=== PATIENT | female | born 1950 ===

== ENCOUNTER 2017-01-30 09:25 | Inpatient (IN) | payer MEDICARE, OTHER ==
[~2017-01-30] VITALS: Ht 152.4 cm; Wt 100.3 kg
--- NOTE | ~2017-01-30 | DS ---
Discharge Summary [id number] [place]. [address] NAME: PANCHITO BRADLEY : 46 STATUS : DIS IN PAT#: [id number] AGE: 66 ADM/REG DATE : 01/31/17 MR#: [id number] REPORT SERV DATE: 02/03/17 DICTATED BY: JR. HOWARD WILLIAM JOHN DATE: 02/02/17 REPORT STATUS : Draft TRANSCRIBED BY: CHRISTOPHER DATE: 02/02/17 ADMISSION DATE: 01/31/2017 DISCHARGE DATE: 02/02/2017 ADDENDUM: PROBLEM LIST: Shortness of breath with hypoxia. The patient failed home O2 eval and refuses to get O2 tank and concentrator at home. The patient wants to only carry pocketbook-type O2 when out of the house. I have encouraged the patient to get the O2 tanks and concentrator at least during home activity, and the patient is prescribed DuoNeb aerosol nebulizers four times a day as well as albuterol HFA q.4 hours p.r.n. shortness of breath and to follow up with her PCP later this week. ESTEBAN/CHRISTOPHER Noemi Burgess NP Chirag Howard Jr, MD / [id number] CC: Chirag Howard Jr, MD Melissa Phillips, M.D.
--- NOTE | ~2017-01-30 | PUL ---
[id number] [place]. [address] NAME: PANCHITO BRADLEY : 46 STATUS : DIS IN PAT#: [id number] AGE: 66 ADM/REG DATE : 01/31/17 MR#: [id number] REPORT SERV DATE: 02/03/17 DICTATED BY: PRIYANKA SPRINGER DATE: 02/02/17 REPORT STATUS : Draft TRANSCRIBED BY: MODL DATE: 02/02/17 PULMONARY FUNCTION TEST Overnight oximetry report performed on room air. Total valid sampling time was five hours, 55 minutes, and 23 seconds. Saturations were less than 88% for four minutes and two seconds. INTERPRETATION: Normal oximetry report while on room air. ANEL/CHRISTOPHER Priyanka Springer M.D. / [id number] CC: Chirag Howard Jr, MD Melissa Phillips, M.D.
--- NOTE | ~2017-01-30 | DS ---
Discharge Summary [facility] [address] [place]. [address] NAME: PANCHITO BRADLEY : 46 STATUS : DIS IN PAT#: [id number] AGE: 66 ADM/REG DATE : 01/31/17 MR#: [id number] REPORT SERV DATE: 02/03/17 DICTATED BY: JR. HOWARD WILLIAM JOHN DATE: 02/02/17 REPORT STATUS : Draft TRANSCRIBED BY: CHRISTOPHER DATE: 02/02/17 ADMISSION DATE: 01/31/2017 DISCHARGE DATE: 02/02/2017 DISCHARGE DIAGNOSES: 1. Acute on chronic low back pain. 2. Shortness of breath with hypoxia. 3. Hypertension. 4. Diabetes mellitus, type 2 with hyperglycemia and A1c of 8.4. 5. Escherichia coli urinary tract infection. 6. Headache. 7. Hypokalemia. CONSULTATIONS: Cardiology, Dr. Ramesh and Dr. Trimble. PROCEDURES AND IMAGIN. 01/30/2017, chest PA and lateral showed:. a. Cardiomegaly. b. Pulmonary vascular congestion. c. Bibasilar and left perihilar atelectasis. d. Bilateral pleural fluid. 2. 02/01/2017, portable chest x-ray showed cardiomegaly with chest improving compared to previous study. HOSPITAL COURSE: Please see initial H and P dictated by Dr. Luis Daniel Cardona on 01/30/2017 for complete details regarding the patient's admission. In brief, the patient was admitted by Dr. Cardona for low back pain, shortness of breath due to possible congestive heart failure. The patient's low back pain has been doing very well with cyclobenzaprine twice daily, and the patient will be discharged home with this medication. Upon arrival in the ER, the patient's arterial blood gas was pH 7.40, pCO2 34, pO2 of 45, base excess negative 3.7, bicarb 20.2, and O2 saturation of 79.5 on room air. The patient has been aggressively diuresed since her admission and has been able to be weaned off her 2 L of oxygen per nasal cannula. Sats monitoring on her first night required her to be on 2 L nasal cannula and O2 monitoring last night, the patient was stable without oxygen. The patient will be having a home O2 eval with and without activity prior to discharge. The patient does have a history of hypertension for which Cardiology had increased her amlodipine to 10 mg daily. After admission, the patient's amlodipine was then decreased again to 5 mg daily. The patient's blood pressure has been between 129 to 170 over 50 to 70 since this change of medication. When the patient was admitted, she had bilateral lower extremity 2 to 3+ to her knees, which has now resolved to right lower extremity 1 to 2+ above her right ankle and her left lower extremities within normal limits. The patient has diabetes mellitus, type 2 with elevated blood glucose and A1c of 8.4. The patient's with meal insulin has been increased to 30 units and her Novolin N has been Discharge Summary [address] [address] NAME: PANCHITO BRADLEY : 46 STATUS : DIS IN PAT#: [id number] AGE: 66 ADM/REG DATE : 01/31/17 MR#: [id number] REPORT SERV DATE: 02/03/17 DICTATED BY: JR. HOWARD WILLIAM JOHN DATE: 02/02/17 REPORT STATUS : Draft TRANSCRIBED BY: CHRISTOPHER DATE: 02/02/17 increased to 40 units before breakfast and supper. The patient has been instructed to keep track of her before meal and bedtime blood sugars and to take a diary to her primary care provider for further adjustment. The patient also stated that she had been checking her blood sugars and then not eating for 4 to 5 hours after checking her blood sugars, so the patient has been instructed to pack her breakfast and take it with her to eat on the bus so that she can take her insulin on a regularly scheduled basis with her food. The patient is agreeable to this plan. The patient has also been doing some adjusting of her insulin at home and this was discouraged, and the patient is agreeable to plan. During the patient's stay, it was discovered on her urinalysis that she had a urinary tract infection with E. coli, and the patient has been placed on Duricef 1 g twice daily for 10 days. During the patient's stay, she has been experiencing headache, which has decreased today and had been alleviated by taking Aleve during her stay. The patient also had experience of hypokalemia secondary to her diuretics and her potassium has been doubled for her home dosing. We have scheduled an outpatient sleep study and pulmonary function tests to be done within the next week. PHYSICAL EXAMINATION: VITAL SIGNS: Blood pressure is 171/70, O2 saturation is 96% on 1 L nasal cannula, temperature is 98.1, heart rate is 62, respirations are 16. HEENT: Head is atraumatic, normocephalic. Pupils are equal, round, reactive to light and accommodation. Sclerae are clear. Nonicteric. No xanthelasma. NECK: Supple with no obvious thyromegaly or lymphadenopathy. Neck veins are flat and trachea is midline. CARDIAC: S1 and S2 with no obvious murmurs, rubs, or gallops. LUNGS: Lungs are clear to auscultation with normal respiratory effort. GI: Abdomen is soft and nontender with active bowel sounds in all four quadrants. EXTREMITIES: The patient has right lower extremity above the ankle and right foot, 1 to 2+ pitting edema. Left lower extremity is within normal limits. Dorsalis pedis and posterior tibial pulses are present bilaterally, no cyanosis. MUSCULOSKELETAL: Moves all extremities x4. She is ambulatory without assistance. No difficulties with balance. SKIN: Skin is warm and dry with normal color and turgor. NEURO/PSYCH: The patient is alert and oriented x4, pleasant and cooperative. Cranial nerves 2 through 12 are grossly intact. DISCHARGE DIET: The patient is to go home on 1800-calorie diet with 2 L fluid restriction. DISCHARGE MEDICATIONS: Amlodipine 5 mg daily; aspirin 81 mg daily; Duricef 1000 mg twice daily, stop date 02/10/2017, at bedtime; vitamin B12 of 1000 mcg daily; Flexeril 10 mg twice daily; Lasix 40 mg twice daily; gabapentin 100 mg daily; Novolin N 40 units before breakfast and supper; Novolin R 30 units before meals; lisinopril 40 mg daily; Theragran M one tab daily; Lopressor 12.5 mg daily; omeprazole 20 mg daily; potassium chloride 20 mEq twice daily; Zoloft 100 mg daily; Zocor 40 mg daily; Fortamet 1000 mg twice daily; flaxseed 1000 mg daily; krill oil one capsule daily; biotin 5 mg daily; Imodium 2 mg p.r.n. diarrhea. ALLERGIES: THE PATIENT IS ALLERGIC TO SULFA FOR WHICH SHE GETS WELTS AND CODEINE FOR WHICH Discharge Summary [address] [place]. [address] NAME: PANCHITO BRADLEY : 46 STATUS : DIS IN PAT#: [id number] AGE: 66 ADM/REG DATE : 01/31/17 MR#: [id number] REPORT SERV DATE: 02/03/17 DICTATED BY: JR. HOWARD WILLIAM JOHN DATE: 02/02/17 REPORT STATUS : Draft TRANSCRIBED BY: MODHerbert DATE: 02/02/17 SHE GETS NAUSEA. DISCHARGE INSTRUCTIONS: The patient is to follow up with her PCP, Dr. Quiroz, in 7 to 10 days with a blood sugar log. The patient is to have outpatient sleep study and pulmonary function test and she will be notified of scheduling. The patient is to have a 2 L fluid restriction and 1800 calorie diet. If the patient has any more episodes of shortness of breath or chest pain issues, she is to follow up with her PCP or present to the ER. Approximately 40 minutes has been spent coordinating discharge care of this patient including [id number] encounter and summarization of the discharge. [facility] [place]MOD[place]bert Noemi Burgess NP Chirag Howard Jr, MD / [phone] CC: Chirag Howard Jr, MD Melissa Phillips, M.D.
--- NOTE | ~2017-01-30 | HP ---
History And Physical [id number] [facility]. [address] NAME: PANCHITO BRADLEY : 46 STATUS : ADM Buck PAT#: [id number] AGE: 66 ADM/REG DATE : 01/30/17 MR#: [id number] REPORT SERV DATE: 01/30/17 DICTATED BY: LYNN VOGT DATE: 01/30/17 REPORT STATUS : Draft TRANSCRIBED BY: MODHerbert DATE: 01/30/17 DATE OF ADMISSION: 01/30/2017 REASON FOR ADMISSION: Low back pain, some shortness of breath due to diastolic congestive heart failure. HISTORY OF PRESENT ILLNESS: This is a 66-year-old white female, who lives in [facility]. She was hospitalized here in 2014 for congestive heart failure with low BNP of 168. She responded to diuretics back then, and her diuretics have been reduced at some point at home down from 40 mg twice a day on the Lasix to 20 mg twice a day. She was seen by nurse practitioner, Patti in the emergency room and given IV Lasix, that has not actually been given yet; however, she called the hospitalist for admission to the hospital. The patient's primary complaint of coming to the emergency room is low back pain. She saw Dr. Quiroz on Friday for low back pain, had a CT scan of her lumbar spine at [facility] in [place]. Old records are not available at this time but have been requested. The back pain is at the L4-5 level. She has had degenerative joint disease there. She has been offered surgery in the past. She does not know how she aggravated this. No step-down, no fall, no trauma. She does have morbid obesity and is aware of her body habitus and needs to lose weight. However, she does inject insulin to try to control her blood sugars and has been seen by certified residential medication aide in the past, now followed by Dr. Quiroz. She is followed by Dr. Parth Ramesh. No old echocardiogram is available on the computer chart. I am certain that Dr. Ramesh having seen her every six months that she has had an echocardiogram at some point. We will get him to consult and advise. This morning, she came with some shortness of breath, nausea, and vomiting, was hypoxemic in the emergency room with PaO2 of 44 and complaining of low back pain. She is given IV morphine for low back pain. No further imaging has been done yet. PAST MEDICAL HISTORY: She had remotely had surgeries which included cholecystectomy, hysterectomy, appendectomy, and another procedure. HOME MEDICATIONS: Include the following: Amlodipine 10 mg p.o. daily, Halfprin 81 mg p.o. daily, biotin capsule 1 p.o. daily, vitamin B12 of 1000 mcg p.o. daily, flaxseed oil 1000 mg p.o. daily, furosemide 20 p.o. b.i.d., gabapentin 100 mg p.o. at bedtime, insulin NPH 30 units subcu b.i.d., Zoloft 100 mg p.o. daily, Zocor 40 mg at bedtime, regular insulin 25 units at bedtime, krill oil 1 p.o. daily, lisinopril 40 mg p.o. daily, loperamide 2 mg p.o. p.r.n. diarrhea, metformin ER 1000 mg p.o. twice a day, metoprolol 12.5 mg p.o. b.i.d., multivitamin one a day, omeprazole 20 mg p.o. daily, and Klor-Con 20 mEq p.o. daily. ALLERGIES: INCLUDE CODEINE AND SULFA. THE SULFA CAUSES WELTS, CODEINE CAUSES NAUSEA. History And Physical [address] [address] NAME: PANCHITO BRADLEY : 46 STATUS : ADM Buck PAT#: [id number] AGE: 66 ADM/REG DATE : 01/30/17 MR#: [id number] REPORT SERV DATE: 01/30/17 DICTATED BY: LYNN VOGT DATE: 01/30/17 REPORT STATUS : Draft TRANSCRIBED BY: MODL DATE: 01/30/17 SOCIAL HISTORY: She lived in [place] for most of her life. Her is a smoker. She got secondhand smoke there. She does not smoke cigarettes herself. She has been for three years. Moved to [place], [place], where sisters are at that time. She does not smoke cigarettes or take any alcohol. She attends [employer]. She does not drive. Her sister's pick her up and take her to [place]. FAMILY HISTORY: She had brothers who had coronary artery disease. Sister with diabetes, no heart disease. Mother and father both of diabetes. REVIEW OF SYSTEMS: Her blood sugar is not very well controlled at home. She does get a 130 in the afternoon, however. She recognizes her obesity. She does have sleep apnea. She uses a mouth block for this. She has had no fever, chills, night sweats, unilateral weakness, melena, or hematemesis. She does have swelling of lower extremities all the time, perhaps worse here recently. She has had no fits, seizures, or convulsions. Her main complaint is back pain, it does not radiate, it is in the mid part of her back. There is no heat or fluctuance in that area. The remainder of the review of systems is negative. PHYSICAL EXAMINATION: GENERAL: White female, in no acute distress. She is morbidly obese white female with drowsiness but is awakened with tactile stimulation and complains of her back pain. VITAL SIGNS: Her blood pressure is 130/70 with a heart rate of 88, respiratory rate 16, afebrile. HEENT: EOMI. Sclerae clear. Conjunctivae pink. She is somewhat drowsy. NECK: No bruit without any JVD. CHEST: She has rales left greater than the right in the posterior aspect. HEART: Regular S1, S2 without murmur, gallop, or click. ABDOMEN: Grossly obese. Nontender. Bowel sounds are positive. She is protuberant. EXTREMITIES: Have 3 to 4+ pitting edema. Hard. No distal pulses can be palpated. NEUROLOGIC: DTRs are brisk and equal symmetrically bilaterally of the knees. Her lining cutter is equal and symmetric bilaterally. Coordination intact. She has no tremor. She has normal pllqqc-pa-nqmy examination. She is aroused. LYMPHATICS: There is no adenopathy. BREASTS: Grossly without mass. SKIN: Without rash, ecchymosis, or bruising. BACK: She has spasm in the erector spinae muscles to the midportion of back from lumbar area. LABORATORY DATA: BNP was 281.5. Her BMP showed a sodium 136, potassium 4.2, creatinine 1.84, BUN 12, glucose 260, calcium 9.3, magnesium 1.8. Troponin 0.03. The lactate showed 1.8. The hemoglobin was 14.2, hematocrit 43.7, white count 10.6, and platelets were 182,000. INR 1.1. Arterial blood gases showed a pH of 7.40, PaCO2 of 34, and PaO2 of 45 on room air. History And Physical [address] [address] NAME: PANCHITO BRADLEY : 46 STATUS : ADM Buck PAT#: [id number] AGE: 66 ADM/REG DATE : 01/30/17 MR#: [id number] REPORT SERV DATE: 01/30/17 DICTATED BY: LYNN VOGT DATE: 01/30/17 REPORT STATUS : Draft TRANSCRIBED BY: MODL DATE: 01/30/17 The chest x-ray PA and lateral showed cardiomegaly with pulmonary venous congestion, bilateral perihilar atelectasis, and bilateral pleural effusion. ASSESSMENT: 1. Low back pain, acute exacerbation of chronic problem. She had a CT scan of her back at [facility] earlier this week. We will try to get copies of this from Dr. Quiroz office or [facility]. 2. Shortness of breath. 3. Hypertension. 4. Probable diastolic congestive heart failure. 5. Diabetes type 2, uncontrolled. 6. Morbid obesity. 7. Obstructive sleep apnea. 8. Muscle spasm of the erector spinae muscles. We will go ahead and add Flexeril for this. PLAN: IV Lasix has been ordered in the emergency room. I will add Zaroxolyn to that. I will increase her Lasix to 40 mg p.o. b.i.d. I am consulting physical therapy for back pain assessment with intent on improving her and not subjecting to surgery as has been mentioned to her in the past. I believe correction for shortness of breath and hypoxemia would be adequate to be able to be discharged home. She can receive outpatient physical therapy for the back pain or follow up with Dr. Quiroz. Pending at the time of transfer to floor are urinalysis and the x-ray images of the abdomen or back from [facility]. DB/MODL Lynn Vogt M.D. / [id number] CC: Chirag Howard Jr, MD Melissa Phillips, M.D. Steven Stubblefield, M.D., F.A.C.C.
--- NOTE | ~2017-01-30 | CN ---
Consultation Report [facility] [address] [place]. [address] NAME: PANCHITO BRADLEY : 46 STATUS : ADM IN [facility]#: [id number] AGE: 66 ADM/REG DATE : 01/31/17 MR#: [id number] REPORT SERV DATE: 01/31/17 DICTATED BY: PARTH RAMESH DATE: 01/31/17 REPORT STATUS : Draft TRANSCRIBED BY: MODHerbert DATE: 01/31/17 CARDIOLOGY CONSULTATION DATE OF CONSULTATION: HISTORY: The patient is a 66-year-old white female with a history of aortic valve disease, hypertension, diabetes, and hyperlipidemia. She presents with a history of increased dyspnea, associated with coughing and wheezing over the past week. The patient also complains of worsening ankle edema. BNP on admission was 281. Echocardiogram done today shows "moderate" aortic regurgitation with preservation of left ventricular cavity size and contractility (left ventricular ejection fraction was 55% to 60%). The patient has been on Lopressor 12.5 mg b.i.d., lisinopril 40 mg a day, potassium chloride 20 mEq a day, Lasix 20 mg b.i.d., Norvasc 10 mg a day, and Zocor 40 mg a day at home. PAST MEDICAL HISTORY: Remarkable for aortic valve disease, hypertension, type 2 diabetes, hyperlipidemia, and morbid obesity. SOCIAL HISTORY: The patient does not smoke. FAMILY HISTORY: Positive for coronary disease. REVIEW OF SYSTEMS: The patient has nonproductive cough. She has not been having nausea, vomiting, diarrhea, or dysuria. PHYSICAL EXAMINATION: VITAL SIGNS: Blood pressure 150/70, heart rate is 90 and regular, respirations 16 and nonlabored. ENT: Unremarkable. NECK: Shows no jugular venous distention with good carotid upstroke. CHEST: Clear. CARDIOVASCULAR: PMI is lateral to the mid clavicular line. S1 is normal. S2 is narrowly split, 2/6 systolic murmur and a 1/6 diastolic murmur present at the right upper sternal border. ABDOMEN: Obese, but otherwise unremarkable. EXTREMITIES: Remarkable for 1+ ankle edema. SKIN: Warm and dry with no pallor or icterus. NEURO/PSYCH: The patient is oriented x3 with appropriate affect. The creatinine is 0.84, BUN is 12. The 12-lead EKG is currently on the chart. IMPRESSION: 1. Mild to moderate aortic regurgitation with preservation of left ventricular size and Consultation Report [address] [place]. [address] NAME: PANCHITO BRADLEY : 46 STATUS : ADM IN PAT#: [id number] AGE: 66 ADM/REG DATE : 01/31/17 MR#: [id number] REPORT SERV DATE: 01/31/17 DICTATED BY: PARTH RAMESH DATE: 01/31/17 REPORT STATUS : Draft TRANSCRIBED BY: CHRISTOPHER DATE: 01/31/17 systolic function. 2. Minimal elevation of BNP makes clinical congestive heart failure, unlikely. 3. Essential hypertension. 4. Type 2 diabetes. 5. Morbid obesity. 6. Multiple risk factors for coronary disease with increasing dyspnea, probably should be evaluated with a nuclear scan. RECOMMENDATION: 1. Decrease Norvasc to 5 mg a day, because of complaints of edema. 2. Continue lisinopril and Lasix in current doses. 3. Check nuclear perfusion scan. 4. I advised the patient to lose weight and better control diabetes. Thank you very much for this consultation. OSMEL/CHRISTOPHER Parth Ramesh M.D., F.A.C.C. / [id number] CC: Chirag Howard Jr, MD Melissa Phillips, M.D.
[~2017-01-30 09:25] MED LIST: ALEVE220 MG PO; ASAB PO; CELEBREX2 PO; CLEOCIN300 MG PO; FORTAMET500 MG PO; INSNOVN SC; INSNOVR; INSNOVR SC; KRILLOIL PO; L20 PO; L40 PO; LISINOPRIL40 MG PO; LOP25 PO; METROCREAM0.75 % TOP; MULTIVIT/MIN PO; NORV10 PO; PROVENTSOL INH; RESTASIS OPH; VITAMIN D31000 UNIT PO; ZANTAC 150 PO; ZOCOR40 PO; ZOL50 PO; [UNRECOGNIZED DRUG - REMARK]; [UNRECOGNIZED DRUG - REMARK]
[2017-01-30 10:29] LABS: BE (BASE EXCESS) -3.7 MEQ/L (0 +/- 2.5); CARBOXYHEMOGLOBIN 1.9 % (0-3); HCO3 (ACTUAL BICARBONATE) 20.2 MEQ/L (23-27); HEMOBLOGIN CONTENT 15.2 G/DL (12-16); INSTRUMENT SERIAL # 8087; METHEMOGLOBIN 0.5 % (0-3); O2 CONTENT 16.5 VOL% (18-24); PCO2 (CO2 TENSION) 34 MMHG (35-45); PO2 (O2 TENSION) 45 MMHG (79-93); SAMPLE Arterial
[2017-01-30 10:30] LABS: ALLENS TEST Pos
[2017-01-30] MEDS ORDERED: L20 PO (10:48)
[2017-01-30] MEDS ORDERED: NORV10 PO (10:48)
[2017-01-30] MEDS ORDERED: ZESTRIL40 MG PO (10:48)
[2017-01-30] MEDS ORDERED: LOP25 PO (10:49)
[2017-01-30] MEDS ORDERED: ZOCOR40 PO (10:49)
[2017-01-30] MEDS ORDERED: KLOR-CON M2020 MEQ PO (10:49)
[2017-01-30] MEDS ORDERED: NEUR100 PO (10:49)
[2017-01-30] MEDS ORDERED: ZOL100 PO (10:49)
[2017-01-30] MEDS ORDERED: THERGRANM PO (10:50)
[2017-01-30] MEDS ORDERED: HALF81 PO (10:50)
[2017-01-30] MEDS ORDERED: FORTAMET1000 MG PO (10:50)
[2017-01-30] MEDS ORDERED: BL FLAX SEED1000 MG PO (10:51)
[2017-01-30] MEDS ORDERED: KRILLOIL PO (10:51)
[2017-01-30] MEDS ORDERED: BIOTIN5 MG PO (10:52)
[2017-01-30] MEDS ORDERED: CYANO1000T PO (10:52)
[2017-01-30] MEDS ORDERED: INSNOVR SC (10:52)
[2017-01-30] MEDS ORDERED: INSNOVN SC (10:54)
[2017-01-30] MEDS ORDERED: PRILO PO (10:54)
[2017-01-30] MEDS ORDERED: IMOD PO (10:55)
[2017-01-30 11:11] LABS: BASOPHILS 0.1 %; BASOPHILS ABSOLUTE 0.01 10/3/uL (0.0-0.16); EOSINOPHILS 0.1 %; EOSINOPHILS ABSOLUTE 0.01 10/3/uL (0.0-0.53); HEMATOCRIT 43.7 % (36.0-48.0); HEMOGLOBIN 14.2 g/dL (12.0-16.0); IMMATURE GRANULOCYTES 0.7 %; IMMATURE GRANULOCYTES ABSOLUTE 0.07 10/3/uL (0.0-0.11); LYMPHOCYTES 7.6 %; LYMPHOCYTES ABSOLUTE 0.81 10/3/uL (0.67-4.30); MANUAL DIFF NO %; MEAN CORPUS HGB CONC 32.5 g/dL (32.0-36.0); MEAN PLATELET VOLUME 11.7 fL (9.2-13.0); MONOCYTES 2.3 %; MONOCYTES ABSOLUTE 0.24 10/3/uL (0.21-1.20); NEUTROPHILS 89.2 %; NEUTROPHILS ABSOLUTE 9.45 10/3/uL (2.02-8.40); PLATELET COUNT 182 10/3/uL (150-400); RBC DISTRIBUTION WIDTH 15.1 % (12.0-16.0); RED CELL COUNT 5.08 10/6/uL (4.0-5.6); WHITE BLOOD CELLS 10.6 10/3/uL (4.5-10.5)
[2017-01-30 11:18] LABS: INTERNATIONAL NORMAL RATI 1.1 UNITS (-)
[2017-01-30 11:19] LABS: PARTIAL THROMBO TIME 26.9 SEC (22.5-37.2)
[2017-01-30 11:27] LABS: LACTATE 1.8 MMOL/L (0.3-2.4)
[2017-01-30 11:28] LABS: BUN (BLOOD UREA NITROGEN) 12 MG/DL (6-23); CALCIUM, SERUM 9.3 MG/DL (8.5-10.4); CHEST PAIN PROFILE TAT 0 Hrs 21 Mins; CHLORIDE, SERUM 103 MMOL/L (96-112); CO2 (CARBON DIOXIDE) 25 MMOL/L (24-34); CREATININE 0.84 MG/DL (0.55-1.02); GFR AFRICAN AMERICAN 83 ML/MIN (>=60); GFR NON AFRICAN AMERICAN 71 ML/MIN (>=60); GLUCOSE, SERUM 260 MG/DL (60-99); POTASSIUM, SERUM 4.2 MMOL/L (3.5-5.3); SODIUM, SERUM 136 MMOL/L (135-148); TROPONIN I 0.03 NG/ML (<0.05)
[2017-01-30 13:23] LABS: ASCORBIC ACID (UR NOT ORDER) NEG (NEG); BILIRUBIN, URINE NEGATIVE (NEG); ER URINALYSIS TAT 0 Hrs 13 Mins; KETONE, URINE TRACE MG/DL (NEG); LEUKOCYTE ESTERASE(NOT OR LARGE (NEG); NITRITE (URINE) NEG (NEG); WBC (NOT ORDERED) (RFLEX) 38 (0-5)
[2017-01-31 03:46] LABS: BUN (BLOOD UREA NITROGEN) 20 MG/DL (6-23); CALCIUM, SERUM 9.6 MG/DL (8.5-10.4); CHLORIDE, SERUM 95 MMOL/L (96-112); CO2 (CARBON DIOXIDE) 29 MMOL/L (24-34); CREATININE 1.17 MG/DL (0.55-1.02); GFR AFRICAN AMERICAN 55 ML/MIN (>=60); GFR NON AFRICAN AMERICAN 48 ML/MIN (>=60); GLUCOSE, SERUM 226 MG/DL (60-99); POTASSIUM, SERUM 3.4 MMOL/L (3.5-5.3); SODIUM, SERUM 134 MMOL/L (135-148)
[2017-02-01 03:58] LABS: BASOPHILS 0.1 %; BASOPHILS ABSOLUTE 0.01 10/3/uL (0.0-0.16); EOSINOPHILS 0 %; HEMATOCRIT 39.5 % (36.0-48.0); HEMOGLOBIN 13.1 g/dL (12.0-16.0); IMMATURE GRANULOCYTES 0.4 %; IMMATURE GRANULOCYTES ABSOLUTE 0.04 10/3/uL (0.0-0.11); LYMPHOCYTES 9.3 %; LYMPHOCYTES ABSOLUTE 1.01 10/3/uL (0.67-4.30); MEAN CORPUS HGB CONC 33.2 g/dL (32.0-36.0); MEAN CORPUSCULAR HEMOGLOB 27.8 pg (26.0-34.0); MEAN CORPUSCULAR VOLUME 83.7 fL (80-100); MEAN PLATELET VOLUME 11.5 fL (9.2-13.0); MONOCYTES 8.7 %; MONOCYTES ABSOLUTE 0.95 10/3/uL (0.21-1.20); NEUTROPHILS 81.5 %; NEUTROPHILS ABSOLUTE 8.85 10/3/uL (2.02-8.40); PLATELET COUNT 176 10/3/uL (150-400); RBC DISTRIBUTION WIDTH 14.9 % (12.0-16.0); RED CELL COUNT 4.72 10/6/uL (4.0-5.6); WHITE BLOOD CELLS 10.9 10/3/uL (4.5-10.5)
[2017-02-01 04:03] LABS: MANUAL DIFF NO %
[2017-02-01 04:08] LABS: CALCIUM, SERUM 9.7 MG/DL (8.5-10.4); CHLORIDE, SERUM 95 MMOL/L (96-112); CO2 (CARBON DIOXIDE) 29 MMOL/L (24-34); GFR AFRICAN AMERICAN 54 ML/MIN (>=60); GFR NON AFRICAN AMERICAN 46 ML/MIN (>=60); GLUCOSE, SERUM 218 MG/DL (60-99); POTASSIUM, SERUM 3.5 MMOL/L (3.5-5.3); SODIUM, SERUM 137 MMOL/L (135-148)
[2017-02-01 04:09] LABS: BUN (BLOOD UREA NITROGEN) 32 MG/DL (6-23)
[2017-02-02 05:12] LABS: BASOPHILS 0 %; EOSINOPHILS 0.4 %; EOSINOPHILS ABSOLUTE 0.03 10/3/uL (0.0-0.53); HEMATOCRIT 41.5 % (36.0-48.0); HEMOGLOBIN 13.6 g/dL (12.0-16.0); IMMATURE GRANULOCYTES 0.2 %; IMMATURE GRANULOCYTES ABSOLUTE 0.02 10/3/uL (0.0-0.11); LYMPHOCYTES 10.5 %; LYMPHOCYTES ABSOLUTE 0.86 10/3/uL (0.67-4.30); MANUAL DIFF NO %; MEAN CORPUS HGB CONC 32.8 g/dL (32.0-36.0); MEAN CORPUSCULAR HEMOGLOB 27.8 pg (26.0-34.0); MEAN CORPUSCULAR VOLUME 84.9 fL (80-100); MEAN PLATELET VOLUME 11.4 fL (9.2-13.0); MONOCYTES 9.4 %; MONOCYTES ABSOLUTE 0.77 10/3/uL (0.21-1.20); NEUTROPHILS 79.5 %; NEUTROPHILS ABSOLUTE 6.49 10/3/uL (2.02-8.40); PLATELET COUNT 165 10/3/uL (150-400); RBC DISTRIBUTION WIDTH 14.8 % (12.0-16.0); RED CELL COUNT 4.89 10/6/uL (4.0-5.6); WHITE BLOOD CELLS 8.2 10/3/uL (4.5-10.5)
[2017-02-02 05:22] LABS: BUN (BLOOD UREA NITROGEN) 34 MG/DL (6-23); CHLORIDE, SERUM 98 MMOL/L (96-112); CO2 (CARBON DIOXIDE) 31 MMOL/L (24-34); CREATININE 1.03 MG/DL (0.55-1.02); GFR AFRICAN AMERICAN 65 ML/MIN (>=60); GFR NON AFRICAN AMERICAN 56 ML/MIN (>=60); POTASSIUM, SERUM 3.1 MMOL/L (3.5-5.3); SODIUM, SERUM 137 MMOL/L (135-148)
[2017-02-02 05:23] LABS: GLUCOSE, SERUM 144 MG/DL (60-99)
[2017-02-02] MEDS ORDERED: FLEX PO (14:05)
[2017-02-02] MEDS ORDERED: DURICEF PO (14:07)
[2017-02-02] MEDS ORDERED: DUONEB INH (14:10)
[2017-02-02] MEDS ORDERED: PROVHFA INH (14:11)
== END 2017-02-02 14:35 | disposition home or self-care (01) | DRG 189 ==
LOC: ER 09:25 → CDU1 12:57 → CDU2 12:57
PROVIDERS: Internal Medicine; Nurse Practitioner Family; Physician Assistant
DX: J96.01 Acute respiratory failure with hypoxia (principal); J90 Pleural effusion, not elsewhere classified; Z68.41 Body mass index [BMI] 40.0-44.9, adult; N39.0 Urinary tract infection, site not specified; E11.65 Type 2 diabetes mellitus with hyperglycemia; M51.36 Other intervertebral disc degeneration, lumbar region; I10 Essential (primary) hypertension; I35.1 Nonrheumatic aortic (valve) insufficiency; E66.01 Morbid (severe) obesity due to excess calories; G47.33 Obstructive sleep apnea (adult) (pediatric); M62.830 Muscle spasm of back; R51 Headache; J45.909 Unspecified asthma, uncomplicated; M54.5 Low back pain; T50.2X5A Adverse effect of carbonic-anhydrase inhibitors, benzothiadiazides and other diuretics, initial encounter; E87.6 Hypokalemia; E78.5 Hyperlipidemia, unspecified; B96.20 Unspecified Escherichia coli [E. coli] as the cause of diseases classified elsewhere; Z79.4 Long term (current) use of insulin; Z79.899 Other long term (current) drug therapy; Z88.2 Allergy status to sulfonamides; Z88.5 Allergy status to narcotic agent
CPT/HCPCS: 36600; 71010; 71020; 78452; 80048; 81001; 82805; 82962; 83605; 83735; 83880; 84132; 84484; 85025; 85610; 85730; 87077; 87086; 87186; 93005; 93017; 93306; 94640; 94762; 96374; 96375; 96376; 97161-GP; 99285; A9270-GY; A9502; G8978-CH-GP; G8979-CH-GP; G8980-CH-GP; J0153; J0360; J2405